=== PATIENT | male | born 2000 | race Two or more races ===

== ENCOUNTER 2024-04-24 08:07 | Emergency (ER) | payer MEDICAID, OTHER, SELFPAY ==
[2024-04-24 08:19] VITALS: BP 128/83; PULSE 85; RESP 20; TEMP 37.1; O2SAT 100; BMI 22.0
[2024-04-24 08:34] LABS: MANUAL DIFF FLAG NO
[2024-04-24 08:42] LABS: Basophils Percent Auto 0.4 % (0-2); Eosinophils Percent Auto 0.4 % (0-4); Hematocrit 39.4 % (42.0-52.0); Imm Gran Abs Auto 0.02 X10*3/uL (0.00-0.03); Imm Gran Pct Auto 0.4 % (0.0-0.4); Lymphocytes Absolute Auto 1.2 X10*3/uL (1.2-4.9); Lymphocytes Percent Auto 21.1 % (20-40); Mean Corpuscular HGB Conc 35.5 g/dl (31.0-36.0); Mean Corpuscular Hemoglobin 32.1 pg (27.0-33.0); Mean Corpuscular Volume 90.4 fL (80.0-98.0); Monocytes Absolute Auto 0.6 X10*3/uL (0.1-1.2); Monocytes Percent Auto 10.4 % (2-11); Neutrophils Absolute Auto 3.8 x10*3/uL (2.0-8.3); Neutrophils Percent Auto 67.3 % (45-73); Platelet Count 260 X10*3/uL (160-400); Red Blood Count 4.36 X10*6/uL (4.60-5.80); White Blood Count 5.6 X10*3/uL (4.8-10.8)
[2024-04-24 08:50] LABS: IDNOW Serial# 08D9AD1C; Strep A Nucleic Acid Negative (Negative)
[2024-04-24 08:53] LABS: IDNOW Serial# 152EDE1D; Influenza A Negative (Negative); Influenza B2 Negative (Negative)
[2024-04-24 08:57] LABS: Alanine Aminotransferase 12 U/L (0-40); Albumin Level 4.1 g/dL (3.5-5.0); Alkaline Phosphatase 80 U/L (39-117); Anion Gap 16 (12-20); Aspartate Amino Transferase 17 U/L (5-37); Bilirubin Total 0.8 mg/dL (0.0-1.0); Blood Urea Nitrogen 12 mg/dL (9-16); Carbon Dioxide 20 mmol/L (22-29); Chloride 108 mmol/L (96-108); Creatinine Clr Calc Pharmacy 111.1; Estimated Glomerular Filt Rate > 60; Glucose Random 99 mg/dL (60-115); Potassium 3.5 mmol/L (3.3-5.1); Sodium 140 mmol/L (135-145); Total Protein 7.1 g/dL (6.5-8.0)
[2024-04-24] MEDS: ondansetron HCL 4 MG/2 ML VIAL IVPUSH (09:22)
[2024-04-24] MEDS: 0.9 % Sodium Chloride 1,000 ML 999 ML IV ×2 (09:22→09:45)
[2024-04-24] MEDS: Ketorolac Tromethamine 15 MG/ML VIAL IVPUSH (09:23)
--- NOTE | 2024-04-24 09:24 | ED_ITS ---
HPI - Abdominal Pain General Chief Complaint: Abdominal Pain Stated Complaint: Abd pain Time Seen by Provider: 04/24/24 08:49 Source: patient, family and respiratory care faculty Mode of arrival: ambulatory Limitations: no limitations History of Present Illness ED Provider: FRANCES RODRÍGUEZ narrative: 24 yo male s/p appendectomy at age 20 here with c/o n/v/d abdominal cramps after attending event on Tuesday - his mom and brother are also ill. He denies bloody stools or fevers. He notes he feels he had a fever. No travel or antibiotic use. He has had multiple episodes of vomiting. Brother is also ED patient for same. MD elicited complaint: abdominal pain Onset (ago): hour(s) (24) Pain Consistency: constant Location: LUQ and RLQ Severity: moderate Quality: cramping Radiation: none Migration to: no migration Exacerbating factors: eating and movement Relieving factors: nothing Context: sick contacts Associated symptoms: nausea, vomiting and diarrhea Related Data Previous Rx's ?Medication ?Instructions ?Recorded ondansetron 4 mg disintegrating 4 mg PO Q8H PRN nausea and 04/24/24 tablet vomiting #20 tabs Allergies Allergy/AdvReac Type Severity Reaction Status Date / Time No Known Allergies Allergy Verified 04/24/24 08:22 Review of Systems Review of Systems Constitutional : pos Fever, pos Chills ENT/Mouth : No sore throat, No Rhinorrhea Eyes: No Swelling, No Redness Cardiovascular : No Chest Pain, No SOB, NoEdema Respiratory : No Cough, No Sputum, No Wheezing Gastrointestinal : Positive Nausea, Positive Vomiting, positive Diarrhea, positive abdominal Pain, No Hematochezia, No Melena Genitourinary : No Dysuria, No Urinary Frequency, No Hematuria, No Urgency Musculoskeletal : No joint pain, No Myalgias, No Joint Swelling Skin : No Skin Lesions, No rash Neuro : No Weakness, No Numbness, No Dizziness, No Headache Psych : No Anxiety/Panic, No Depression All other systems reviewed and are negative. [facility] Past Medical History Attestation statement: The following information was validated with the patient. Source: old records reviewed Medical History No pertinent past medical history Surgical History S/P appendectomy Social History Social History Patient Tobacco Use Status: Never used Tobacco Smoked in Last 30 Days: No Use of substances other than those prescribed or required for medical reasons: No Advance Directives: No Advance Directives Information Provided: Yes Do you have a plan to hurt others: No Plan Physical Exam ED Vital Signs: Vital Signs - 24 hr 04/24/24 08:19 04/24/24 10:30 Temperature 98.7 F 98.1 F Pulse Rate 85 55 Respiratory Rate 20 16 Blood Pressure 128/83 105/60 Pulse Oximetry 100 100 Oxygen Delivery Method Room Air Room Air BMI result Body Mass Index 22.0 Appearance: Alert. Oriented X3. No acute distress. Eyes: Pupils equal, round and reactive to light. ENT: Pharynx mild dry heaving Neck: Normal inspection. Neck supple. CVS: Normal heart rate and rhythm. Pulses normal. Respiratory: No respiratory distress. Breath sounds normal. Abdomen: Soft and mild lower abdominal ttp no rebound or guarding Skin: Skin warm and dry. Normal skin color. Normal skin turgor. Extremities: No lower extremity edema. No calf ttp Neuro: Oriented X 3. No motor deficit. No sensory deficit. Medical Decision Making Medical Decision Making MDM Narrative: 24 yo male with prior appendectomy here with c/o lower abdominal pain chills n/v/d brother is also ill and ER patient mom is also sick - all after attending event on Tuesday at this time will obtain labs, supportive medications and hydrate. Given they are all ill and presenting the same I do not suspect acute surgical abdominal issue. Differential Diagnosis Differential Diagnoses: The differential diagnosis associated with the presentation includes viral syndrome, enteritis Admission/Observation Consideration of admission/observation: Escalation of care including admission/observation considered tolerating PO feels better stable for DC Lab Data [facility] Lab Attestation statement: I reviewed the patient's lab results. 04/24/24 08:29 04/24/24 08:29 Labs: Lab Results 04/24/24 Range/Units 08:29 WBC 5.6 (4.8-10.8) X10*3/uL RBC 4.36 L (4.60-5.80) X10*6/uL Hgb 14.0 (14.0-18.0) g/dl Hct 39.4 L (42.0-52.0) % MCV 90.4 (80.0-98.0) fL MCH 32.1 (27.0-33.0) pg MCHC 35.5 (31.0-36.0) g/dl RDW 12.0 (11.0-16.0) % Plt Count 260 (160-400) X10*3/uL MPV 9.0 L (9.4-12.4) fL Immature Gran % (Auto) 0.4 (0.0-0.4) % Neut % (Auto) 67.3 (45-73) % Lymph % (Auto) 21.1 (20-40) % [place] % (Auto) 10.4 (2-11) % Eos % (Auto) 0.4 (0-4) % Baso % (Auto) 0.4 (0-2) % Lymph # (Auto) 1.2 (1.2-4.9) X10*3/uL [place] # (Auto) 0.6 (0.1-1.2) X10*3/uL Eos # (Auto) 0.0 (0.0-0.4) X10*3/uL Baso # (Auto) 0.0 (0.0-0.2) X10*3/uL Abs Immat Gran (auto) 0.02 (0.00-0.03) X10*3/uL Absolute Neuts (auto) 3.8 (2.0-8.3) x10*3/uL Absolute Nucleated RBC 0.000 (0.0-0.012) X10*3/uL Nucleated RBC % (auto) 0.0 (0.0-0.2) /100WBC Sodium 140 (135-145) mmol/L Potassium 3.5 (3.3-5.1) mmol/L Chloride 108 (96-108) mmol/L Carbon Dioxide 20 L (22-29) mmol/L Anion Gap 16 (12-20) BUN 12 (9-16) mg/dL Creatinine 0.97 (0.5-1.4) mg/dL Estim Creat Clear Calc 111.1 Estimated GFR > 60 Random Glucose 99 (60-115) mg/dL Calcium 9.0 (8.4-10.2) mg/dL Total Bilirubin 0.8 (0.0-1.0) mg/dL AST 17 (5-37) U/L ALT 12 (0-40) U/L Alkaline Phosphatase 80 (39-117) U/L Total Protein 7.1 (6.5-8.0) g/dL Albumin 4.1 (3.5-5.0) g/dL Lipase 26 (8-78) U/L Influenza Type A (JEANINE) Negative (Negative) Influenza Type B (JEANINE) Negative (Negative) Influenza A & B Note See Note S. pyogenes GrpA JEANINE Negative (Negative) Independent Historian Clinical information obtained from an independent historian. History obtained from or confirmed by: Parent Prescription Management I considered prescription management with: Other Medications Administered Discontinued Medications Generic Name Dose Route Start Last Admin Trade Name Freq PRN Reason Stop Dose Admin Sodium Chloride 1,000 mls @ 999 mls/hr 04/24/24 09:11 04/24/24 09:22 Ns IV 04/24/24 10:11 999 mls/hr .Q1H1M ONE Administration Sodium Chloride 1,000 mls @ 999 mls/hr 04/24/24 09:37 04/24/24 09:45 Ns IV 04/24/24 10:37 999 mls/hr .Q1H1M ONE Administration Ketorolac Tromethamine 15 mg 04/24/24 09:11 04/24/24 09:23 Ketorolac Tromethamine 15 Mg/Ml Vial IVPUSH 04/24/24 09:12 15 mg ONCE ONE Administration Ondansetron HCl 4 mg 04/24/24 09:11 04/24/24 09:22 Ondansetron Hcl 4 Mg/2 Ml Vial IVPUSH 04/24/24 09:12 4 mg ONCE ONE Administration Discharge Plan Discharge Clinical Impression: Nausea vomiting and diarrhea Abdominal pain Qualifiers: Abdominal location: lower abdomen, unspecified Qualified Code(s): R10.30 - Lower abdominal pain, unspecified Patient Disposition: Home, Self-Care Instructions: Acute Nausea and Vomiting (ED), Abdominal Pain (ED) Additional Instructions: return for worsening pain, inability to eat or drink or any other concerns bland diet 24 hours than advance slowly Prescriptions: New ondansetron 4 mg tablet,disintegrating 4 mg PO Q8H PRN (Reason: nausea and vomiting) Qty: 20 0RF Stand Alone Forms: Work/School Release Print Language: Yoruba
[2024-04-24 09:25] LABS: Lipase 26 U/L (8-78)
--- NOTE | 2024-04-24 09:28 | PC.NURSE ---
a&ox4. vss and up to date. pt presents to ED w/ sudden onset 07/07 nonradiating lower abdominal pain/n/v/d x 0400 this morning. pt has sick contacts around him - sibling/mother are also sick w/ same sx. pt states he was at a family green party on tuesday where they all ate the same food. 20gIV placed in the right AC - IVF/medication administered per provider order. effectiveness pending. no sob/wob noted. respirations even and unlabored. plan of care ongoing. call jason placed within reach.
[2024-04-24 10:30] VITALS: BP 105/60; PULSE 55; RESP 16; TEMP 36.7; O2SAT 100
[2024-04-24 11:55] VITALS: BP 105/60; PULSE 55; RESP 16; TEMP 36.7; O2SAT 100
== END 2024-04-24 11:56 | disposition home or self-care (01) ==
PROVIDERS: Emergency Provider Emergency Medicine
DX: R11.2 Nausea with vomiting, unspecified (principal); R19.7 Diarrhea, unspecified; R10.12 Left upper quadrant pain; R10.31 Right lower quadrant pain
CPT/HCPCS: 80053; 83690; 85025; 87502; 87651; 96361; 96374; 96375; 99284; 99285; J1885; J2405

== ENCOUNTER 2024-10-08 01:34 | Emergency (ER) | payer MEDICAID, OTHER, SELFPAY ==
--- NOTE | 2024-10-08 | ECG_ITS ---
Test Reason : etoh Blood Pressure : / mmHG Vent. Rate : 099 BPM Atrial Rate : 099 BPM P-R Int : 138 ms QRS Dur : 084 ms QT Int : 332 ms P-R-T Axes : 079 072 049 degrees QTc Int : 426 ms Normal sinus rhythm Normal ECG No previous ECGs available Referred By: Generic ED Physician Electronically Signed By:Fabian Ruiz
--- NOTE | ~2024-10-08 | XR_ITS ---
EXAMINATION: XR CHEST CLINICAL INFORMATION: Shortness of breath. COMPARISON: None available. TECHNIQUE: Frontal view of the chest was obtained. FINDINGS: No significant abnormality is noted involving the heart, lungs, mediastinum, bony thorax or soft tissues. XR/XR chest 1V IMPRESSION: Unremarkable examination. Electronically signed by: Adan Patel MD 10/08/2024 05:19 AM [facility]
[2024-10-08 01:39] VITALS: BP 117/83; PULSE 88; RESP 18; TEMP 37.1; O2SAT 99; BMI 23.2
[2024-10-08 01:51] LABS: MANUAL DIFF FLAG NO
[2024-10-08 01:52] LABS: Basophils Percent Auto 0.4 % (0-2); Eosinophils Absolute Auto 0.1 X10*3/uL (0.0-0.4); Eosinophils Percent Auto 1.4 % (0-4); Hematocrit 40.2 % (42.0-52.0); Hemoglobin 14.6 g/dl (14.0-18.0); Imm Gran Abs Auto 0.03 X10*3/uL (0.00-0.03); Imm Gran Pct Auto 0.4 % (0.0-0.4); Lymphocytes Absolute Auto 3.8 X10*3/uL (1.2-4.9); Lymphocytes Percent Auto 48.5 % (20-40); Mean Corpuscular HGB Conc 36.3 g/dl (31.0-36.0); Mean Corpuscular Hemoglobin 32.3 pg (27.0-33.0); Mean Corpuscular Volume 88.9 fL (80.0-98.0); Mean Platelet Volume 8.7 fL (9.4-12.4); Monocytes Absolute Auto 0.5 X10*3/uL (0.1-1.2); Monocytes Percent Auto 5.8 % (2-11); Neutrophils Absolute Auto 3.4 x10*3/uL (2.0-8.3); Neutrophils Percent Auto 43.5 % (45-73); Platelet Count 311 X10*3/uL (160-400); Red Blood Count 4.52 X10*6/uL (4.60-5.80); White Blood Count 7.9 X10*3/uL (4.8-10.8)
--- NOTE | 2024-10-08 01:56 | PC.NURSE ---
pt from lobby, assume care of pt at this time
[2024-10-08 02:09] LABS: Alanine Aminotransferase 17 U/L (0-40); Albumin Level 4.6 g/dL (3.5-5.0); Alkaline Phosphatase 104 U/L (39-117); Anion Gap 18 (12-20); Aspartate Amino Transferase 21 U/L (5-37); Bilirubin Total 0.6 mg/dL (0.0-1.0); Blood Urea Nitrogen 17 mg/dL (9-16); Calcium 9.3 mg/dL (8.4-10.2); Carbon Dioxide 20 mmol/L (22-29); Chloride 108 mmol/L (96-108); Creatinine Clr Calc Pharmacy 105.4; Estimated Glomerular Filt Rate > 60; Ethanol 155 mg/dL; Glucose Random 109 mg/dL (60-115); Magnesium 2.1 mg/dL (1.6-2.6); Sodium 142 mmol/L (135-145); Total Protein 7.7 g/dL (6.5-8.0)
[2024-10-08 02:16] LABS: Troponin-I High Sensitivity < 2.7 ng/L (<3.5-35.0)
[2024-10-08 03:25] VITALS: BP 97/55; PULSE 66; RESP 13; O2SAT 96
--- NOTE | 2024-10-08 04:34 | ED.ALCOHOL ---
HPI - Alcohol General Chief Complaint: ETOH/Substance Use Stated Complaint: ETOH Time Seen by Provider: 10/08/24 02:10 Source: patient Mode of arrival: ambulatory Limitations: no limitations History of Present Illness ED Provider: gloria RODRÍGUEZ narrative: Patient with no significant past medical history had few beer earlier and then at 23:30 noticed sudden onset of chest pain right side radiating to the left side had similar chest pain in the past patient is saturating 100% at room air no significant distress noticed patient denied any history of anxiety Related Data Previous Rx's ?Medication ?Instructions ?Recorded ondansetron 4 mg disintegrating 4 mg PO Q8H PRN nausea and 04/24/24 tablet vomiting #20 tabs Allergies Allergy/AdvReac Type Severity Reaction Status Date / Time No Known Allergies Allergy Verified 10/08/24 01:41 Review of Systems Review of Systems: Yes all other systems are reviewed and are negative [facility] Past Medical History Medical History No pertinent past medical history Surgical History S/P appendectomy Social History Social History Patient Tobacco Use Status: Never used Tobacco Smoked in Last 30 Days: No Use of substances other than those prescribed or required for medical reasons: No Advance Directives: No Advance Directives Information Provided: Yes Do you have a plan to hurt others: No Plan Physical Exam ED Vital Signs: Vital Signs - 24 hr 10/08/24 01:39 10/08/24 03:25 10/08/24 05:14 Temperature 98.7 F Pulse Rate 88 66 69 Respiratory Rate 18 13 14 Blood Pressure 117/83 97/55 L 103/62 Pulse Oximetry 99 96 96 Oxygen Delivery Method Room Air Room Air Room Air 10/08/24 05:36 Temperature 97.4 F Pulse Rate 59 Respiratory Rate 13 Blood Pressure 97/64 Pulse Oximetry 98 Oxygen Delivery Method Room Air BMI result Body Mass Index 23.2 Appearance: Alert. Oriented X3. No acute distress. Eyes: PERRLA, No Nystagmus ENT: Pharynx normal. Oral Mucosa moist Neck: Normal inspection. Neck supple. CVS: Normal heart rate and rhythm. Pulses normal. Respiratory: No respiratory distress. Equal air entry bilateral, no wheezing/rales/rhonchi Abdomen: Soft and nontender. Bowel sounds are present, no mass palpable, no CVA tenderness Skin: Skin warm and dry. Normal skin color. Normal skin turgor. Extremities: No lower extremity edema. No calf tenderness Neuro: Oriented X 3. No motor deficit. Medical Decision Making Medical Decision Making [facility] Narrative: Patient nonspecific chest pain with normal EKG heart score of 0 cardiac enzymes negative chest x-ray negative discharge patient home likely muscular pain with alcohol intoxication Differential Diagnosis Differential Diagnoses: The differential diagnosis associated with the presentation includes Pneumothorax/ACS/chest wall pain/alcohol intoxication Lab Data [facility] Lab Attestation statement: I reviewed the patient's lab results. 10/08/24 01:47 10/08/24 01:47 Labs: Lab Results 10/08/24 Range/Units 01:47 WBC 7.9 (4.8-10.8) X10*3/uL RBC 4.52 L (4.60-5.80) X10*6/uL Hgb 14.6 (14.0-18.0) g/dl Hct 40.2 L (42.0-52.0) % MCV 88.9 (80.0-98.0) fL MCH 32.3 (27.0-33.0) pg MCHC 36.3 H (31.0-36.0) g/dl RDW 12.0 (11.0-16.0) % Plt Count 311 (160-400) X10*3/uL MPV 8.7 L (9.4-12.4) fL Immature Gran % (Auto) 0.4 (0.0-0.4) % Neut % (Auto) 43.5 L (45-73) % Lymph % (Auto) 48.5 H (20-40) % [place] % (Auto) 5.8 (2-11) % Eos % (Auto) 1.4 (0-4) % Baso % (Auto) 0.4 (0-2) % Lymph # (Auto) 3.8 (1.2-4.9) X10*3/uL [place] # (Auto) 0.5 (0.1-1.2) X10*3/uL Eos # (Auto) 0.1 (0.0-0.4) X10*3/uL Baso # (Auto) 0.0 (0.0-0.2) X10*3/uL Abs Immat Gran (auto) 0.03 (0.00-0.03) X10*3/uL Absolute Neuts (auto) 3.4 (2.0-8.3) x10*3/uL Absolute Nucleated RBC 0.000 (0.0-0.012) X10*3/uL Nucleated RBC % (auto) 0.0 (0.0-0.2) /100WBC Hold Blue Top SEE NOTE Sodium 142 (135-145) mmol/L Potassium 4.0 (3.3-5.1) mmol/L Chloride 108 (96-108) mmol/L Carbon Dioxide 20 L (22-29) mmol/L Anion Gap 18 (12-20) BUN 17 H (9-16) mg/dL Creatinine 0.92 (0.5-1.4) mg/dL Estim Creat Clear Calc 105.4 Estimated GFR > 60 Random Glucose 109 (60-115) mg/dL Calcium 9.3 (8.4-10.2) mg/dL Magnesium 2.1 (1.6-2.6) mg/dL Total Bilirubin 0.6 (0.0-1.0) mg/dL AST 21 (5-37) U/L ALT 17 (0-40) U/L Alkaline Phosphatase 104 (39-117) U/L Troponin I High Sens < 2.7 (<3.5-35.0) ng/L Total Protein 7.7 (6.5-8.0) g/dL Albumin 4.6 (3.5-5.0) g/dL Ethyl Alcohol 155 mg/dL Independent Interpretation I performed an independent interpretation of an: EKG and Plain X-Ray Interpretation: Normal sinus rhythm heart rate 99 beats per minute normal intervals normal axis no acute STT wave changes Radiology Impression Discussion of test interpretation with radiology: I have reviewed the radiologist's reading. Discharge Plan Discharge Clinical Impression: Alcoholic intoxication, Chest wall pain Patient Disposition: Home, Self-Care Instructions: Alcohol Intoxication (ED), Chest Wall Pain (ED) Additional Instructions: Do not drink alcohol You have muscular chest pain Prescriptions: No Action ondansetron 4 mg tablet,disintegrating 4 mg PO Q8H PRN (Reason: nausea and vomiting) Qty: 20 0RF Print Language: Malaysian
--- NOTE | 2024-10-08 05:10 | PC.NURSE ---
pt is awake, sitting up on the stretcher, no acute distress, resp with ease, will cont plan of care
[2024-10-08 05:14] VITALS: BP 103/62; PULSE 69; RESP 14; O2SAT 96
[2024-10-08 05:36] VITALS: BP 97/64; PULSE 59; RESP 13; TEMP 36.3; O2SAT 98
[2024-10-08 06:20] VITALS: BP 97/64; PULSE 59; RESP 13; TEMP 36.3; O2SAT 98
== END 2024-10-08 06:21 | disposition home or self-care (01) ==
PROVIDERS: Emergency Provider Internal Medicine
DX: F10.129 Alcohol abuse with intoxication, unspecified (principal); R07.89 Other chest pain; Z79.899 Other long term (current) drug therapy
CPT/HCPCS: 36415; 71045; 80053; 80307; 83735; 84484; 85025; 93005; 99283; 99285

== ENCOUNTER → 2024-10-08 01:46 | Outpatient (BNV) | payer MEDICAID, SELFPAY | PROVIDERS: Emergency Provider Internal Medicine; Visit Provider Internal Medicine Cardiovascular Disease | DX: R07.9 Chest pain, unspecified (principal) | CPT/HCPCS: 93010 ==